=== PATIENT | male | born 1950 | race Caucasian/White ===

== ENCOUNTER 2020-02-22 10:27 | Emergency (ER) | payer OTHER, SELFPAY ==
[2020-02-22 10:36] VITALS: BP 103/59; PULSE 57; RESP 18; TEMP 36.3; O2SAT 97; BMI 50.8
--- NOTE | 2020-02-22 11:15 | ED_ITS ---
HPI - Extremity Problem General: Chief complaint: Extremity Injury, Lower Stated complaint: l ankle injury Time Seen by Provider: 02/22/20 10:43 History of Present Illness: HPI Narrative: Patient turning clear to get out of truck and has left ankle pain. Sent here by the [facility]. [facility] said he has possible fractured tibia and wants him to have a splint. Complaint: extremity pain Onset (ago): hour(s) Pain Consistency: constant Location: left and lower extremity Severity scale (1-10): 3 Quality: aching Radiation: none Relieving factors: immobilization and rest Exacerbating factors: weight bearing Associated symptoms: Reports no associated symptoms; Deny chest pain, fever(s) or rash Review of Systems Const: Denies: fever(s), chills or body aches Eyes: Denies: change in vision or blurry vision ENMT: Denies: throat pain or nasal congestion Card: Denies: chest pain or dyspnea on exertion Resp: Denies: dyspnea, productive cough or non-productive cough GI: Denies: abdominal pain, nausea or vomiting : Denies: difficulty urinating Musc: Reports: extremity pain and joint pain Skin/Breast: Denies: rash Neuro: Denies: headache(s) Psych: Denies: anxiety or depression Arsen/Lymph: Denies: easy bruising Physical Exam Const: COMMON NORMALS: no acute distress, average body habitus and patient oriented x3 HENMT: COMMON NORMALS: normocephalic HEAD & SCALP: normal to inspection and normocephalic FACE & SINUS: normal facial exam Eye: COMMON NORMALS: conjunctivae normal GENERAL EYE: appearance normal, both eyes and all related structures CONJUNCTIVA: Yes conjunctivae normal Neck/C-Spine: COMMON NORMALS: no JVD Chest: COMMONS NORMALS: normal inspection of the chest Resp: COMMON NORMALS: normal respiratory effort and clear to auscultation bilaterally AUSCULTATION: clear to auscultation bilaterally Cardio: COMMON NORMALS: no JVD, regular rate and regular rhythm RATE: regular rate RHYTHM: regular rhythm GI: COMMON NORMALS: Normal to inspection, nondistended, normoactive bowel sounds present Extremity: LEFT LOWER EXTREMITY: Yes ankle joint (Tender and swollen neurovascular distal is intact.) Neuro: COMMON NORMALS: patient oriented x3 Course 2 Vital Signs: Vital signs: Vital Signs Temperature 97.3 F L 02/22/20 10:36 Pulse Rate 57 L 02/22/20 10:36 Respiratory Rate 18 02/22/20 10:36 Blood Pressure 103/59 02/22/20 10:36 Pulse Oximetry 97 02/22/20 10:36 MDM - Extremity (Nontraumatic) MDM Narrative: Medical decision making narrative: Discussed case with Dr. Clay. Advised me to speak to Dr. Jacob. Dr. Jacob reviewed x-rays. Dr. Jacob advised nonweightbearing or cam walker splint and follow-up with clinic this week. Discharge Plan Discharge Patient Disposition: Home, Self-Care Clinical Impression: Fibula fracture Qualifiers: Encounter type: initial encounter Fibula location: distal Fracture type: closed Fracture morphology: unspecified fracture morphology Laterality: left Qualified Code(s): S82.832A - Other fracture of upper and lower end of left fibula, initial encounter for closed fracture Condition: Stable Discharge Orders: Discharge Order (Routine); Ordered 02/22/20 Ordered By: Kadeem Ireland Discharge Diet: Usual diet Discharge Activity: Use walker/crutches as instructed Patient Instructions: Leg Fracture (ED) Activity Restrictions/Additional Instructions: Follow-up with Ortho as scheduled. Wear splint as scheduled. Use crutches. Apply ice to the area. Coding Level of Care Code ED Investor Relations Manager for [facility] Exam Comprehensive
--- NOTE | 2020-02-22 11:15 | XR_ITS ---
WS: [id number] LEFT TIBIA-FIBULA 2 VIEWS HISTORY: possible fracture tibia COMPARISON: None available. Oblique fracture distal fibula without displacement. On the lateral projection only there is mild asy mmetry of the tibiotalar joint space. Suspect very slight subluxation. No definite tibial fracture. T iny osseous density at the distal medial malleolus which could be a small avulsion fracture. There is extensive soft tissue edema. XR/XR tibia fibula LT 2V [id number] IMPRESSION: 1. Nondisplaced distal fibular fracture. 2. Suspect very slight subluxation at the tibiotalar joint space. Seen on the lateral view. 3. Indeterminate for tiny avulsion fracture at the medial malleolus.
[2020-02-22] MEDS: HYDROcodone-acetaminophen 7.5-325 mg Tablet 1 TAB PO (12:25)
[2020-02-22 12:27] VITALS: BP 158/90; PULSE 78; RESP 18; O2SAT 98
--- NOTE | 2020-02-22 13:24 | DCPLANNER ---
Addendum entered by Monika Miller 02/22/20 14:36: Pat from ortho called telehealth case manager stating that a follow up appointment was scheduled for Friday, February 23, [address] at 9:[address] Hester. Patient has [facility], telehealth case manager called [facility] and let her know that patient was seen in the ED and that patient has a follow up appointment scheduled. project manager industrial was told that a consult would be put in for patient, telehealth case manager sent patients ED records to November. Original Note: project manager industrial had message to schedule a follow up appointment for patient with ortho. project manager industrial called the ortho clinic, spoke with Alyssa, gave clinic patients information. project manager industrial was told that patients information would be printed and reviewed. Clinic will call patient with appointment information.
--- NOTE | 2020-02-23 15:07 | DCPLANNER ---
Patient had an appointment scheduled for 02.23.20 with ortho, patient did attend the appointment.
== END 2020-02-22 12:34 | disposition home or self-care (01) ==
PROVIDERS: Emergency Provider Nurse Practitioner Family
DX: S82.832A Other fracture of upper and lower end of left fibula, initial encounter for closed fracture (principal); X58.XXXA Exposure to other specified factors, initial encounter
CPT/HCPCS: 12345; 29515; 73590; 99281; 99283; E0114

== ENCOUNTER → 2020-02-23 09:40 | Outpatient (BNVA) | payer OTHER, SELFPAY | PROVIDERS: Referring Provider Nurse Practitioner Family; Visit Provider Specialist | DX: S82.832A Other fracture of upper and lower end of left fibula, initial encounter for closed fracture (principal); X58.XXXA Exposure to other specified factors, initial encounter | CPT/HCPCS: 73610 ==

== ENCOUNTER 2020-02-23 12:12 | Outpatient (CLI) | payer OTHER, SELFPAY | END 2020-02-23 12:13 | disposition home or self-care (01) | LOC: SPT 12:12 | PROVIDERS: Visit Provider Specialist | DX: Z46.89 Encounter for fitting and adjustment of other specified devices (principal); S82.842D Displaced bimalleolar fracture of left lower leg, subsequent encounter for closed fracture with routine healing; X58.XXXD Exposure to other specified factors, subsequent encounter | CPT/HCPCS: 97760; L4361 ==

== ENCOUNTER → 2020-03-13 13:59 | Outpatient (BNVA) | payer OTHER, SELFPAY | PROVIDERS: Visit Provider Specialist | DX: S82.842A Displaced bimalleolar fracture of left lower leg, initial encounter for closed fracture (principal); S82.832A Other fracture of upper and lower end of left fibula, initial encounter for closed fracture | CPT/HCPCS: 73610 ==

== ENCOUNTER → 2020-04-12 10:17 | Outpatient (BNVA) | payer OTHER, SELFPAY | PROVIDERS: Visit Provider Specialist | DX: S82.832A Other fracture of upper and lower end of left fibula, initial encounter for closed fracture (principal); S82.842A Displaced bimalleolar fracture of left lower leg, initial encounter for closed fracture | CPT/HCPCS: 73610 ==

== ENCOUNTER → 2020-05-10 08:29 | Outpatient (BNVA) | payer OTHER, SELFPAY | PROVIDERS: Visit Provider Specialist | DX: S82.832A Other fracture of upper and lower end of left fibula, initial encounter for closed fracture (principal); X58.XXXA Exposure to other specified factors, initial encounter | CPT/HCPCS: 73610 ==

== ENCOUNTER → 2021-10-31 14:54 | Outpatient (BNVA) | payer OTHER, SELFPAY | PROVIDERS: Referring Provider Family Medicine; Visit Provider Podiatrist Foot & Ankle Surgery | DX: S82.432A Displaced oblique fracture of shaft of left fibula, initial encounter for closed fracture (principal); X58.XXXA Exposure to other specified factors, initial encounter | CPT/HCPCS: 73610 ==